=== PATIENT | female | born 1985 | race American Indian/Alaskan Native ===

== ENCOUNTER 2016-12-03 11:33 | Emergency (ER) | payer MEDICAID, OTHER ==
[2016-12-03 13:02] LABS: Basophils % (Auto) 0.5 % (0.0-1.8); Eosinophils % (Auto) 2.2 % (0.0-4.3); Hematocrit 44.3 % (30.3-42.9); Hemoglobin 14.2 gm/dl (10.1-14.3); Mean Corpuscular HGB Conc 32 % (30-34); Mean Corpuscular Hemoglobin 26 pg (28-32); Mean Corpuscular Volume 82 fl (79-97); Platelet Count 324 K/mm3 (140-440); Red Blood Count 5.38 M/mm3 (3.65-5.03); Red Cell Distribution Width 14.5 % (13.2-15.2); White Blood Count 5.6 K/mm3 (4.5-11.0)
[2016-12-03 13:03] LABS: Bilirubin,Urine NEG (Negative); Blood,Urine SM (Negative); Ketones,Urine NEG (Negative); Leukocyte Esterase,Urine TR (Negative); Mucus,Urine FEW /HPF; Nitrite,Urine NEG (Negative); Protein,Urine <15 mg/dL mg/dL (Negative); Urobilinogen,Urine < 2.0 mg/dL (<2.0)
[2016-12-03 13:49] LABS: Alanine Aminotransferase 24 units/L (7-56); Albumin 4.2 g/dL (3.9-5); Albumin/Globulin Ratio 1.3 %; Alkaline Phosphatase 61 units/L (35-129); Anion Gap 18 mmol/L; BUN/Creatinine Ratio 13.75; Blood Urea Nitrogen 11 mg/dL (7-17); Calcium 9.3 mg/dL (8.4-10.2); Carbon Dioxide 26 mmol/L (22-30); Chloride 101.5 mmol/L (98-107); Glucose 91 mg/dL (65-100); Lipase 20 units/L (13-60); Potassium 4.6 mmol/L (3.6-5.0); Sodium 141 mmol/L (137-145); Total Protein 7.4 g/dL (6.3-8.2)
--- NOTE | 2016-12-04 03:13 | Emergency Department Report ---
HPI - General Chief Complaint: Abdominal Pain Time Seen by Provider: 12/04/16 03:10 - HPI HPI: 30-year-old -[place] female, presents to ED with left lower quadrant pain, 7 out of 10, sharp radiating to back. Patient denies any nausea or vomiting. Patient does have history of a blood pressure, morbid obesity. Patient did not try any [id number] medications for her symptoms. Denies any alleviating or exacerbating factors. ED Past Medical Hx - Past Medical History Previous Medical History?: No Hx Hypertension: No - Surgical History Hx Appendectomy: Yes - Social History Smoking Status: Never Smoker - Medications Home Medications: Home Medications Medication Instructions Recorded Confirmed Last Taken Type Ondansetron [Zofran Odt] 4 mg PO Q6H #20 tab.rapdis 01/07/14 Unknown Rx Azithromycin [Zithromax Z-OLLIE] 250 mg PO DAILY #1 tablet 01/11/14 Unknown Rx Methyldopa [Aldomet] 500 mg PO BID #120 tablet 01/11/14 Unknown Rx Nitrofurantoin Kay/M-Cryst 100 mg PO Q12HR #7 capsule 12/04/16 Unknown Rx [Macrobid CAP] traMADol [Ultram] 50 mg PO Q6HR PRN #14 tablet 12/04/16 Unknown Rx ED Review of Systems ROS: Stated complaint: BACK PAIN Other details as noted in HPI Comment: All other systems reviewed and negative Endocrine: no symptoms reported Gastrointestinal: abdominal pain Physical Exam - Physical Exam Vital Signs: Vital Signs 12/03/16 12/03/16 12/03/16 12:32 19:53 23:47 Temperature 98.4 F 98.7 F Pulse Rate 88 89 64 Respiratory 16 18 18 Rate Blood Pressure 145/97 157/108 Blood Pressure 145/97 132/83 [Left] O2 Sat by Pulse 100 100 99 Oximetry 12/04/16 12/04/16 12/04/16 00:55 01:00 01:15 Temperature 98.2 F Pulse Rate 94 H Respiratory 18 Rate Blood Pressure 135/94 129/93 143/101 Blood Pressure 135/94 [Left] O2 Sat by Pulse 99 Oximetry Physical Exam: Gen. alert and oriented 3 in no distress Head atraumatic normocephalic Eyes PERR LA EOMI Chest regular rate and rhythm normal S1-S2 lungs clear bilaterally Abdomen soft nondistended, left lower quadrant tenderness. Back no point tenderness paravertebral tenderness Neuro no focal deficit. Psych normal mood. ED Course Vital Signs 12/03/16 12/03/16 12/03/16 12:32 19:53 23:47 Temperature 98.4 F 98.7 F Pulse Rate 88 89 64 Respiratory 16 18 18 Rate Blood Pressure 145/97 157/108 Blood Pressure 145/97 132/83 [Left] O2 Sat by Pulse 100 100 99 Oximetry 12/04/16 12/04/16 12/04/16 00:55 01:00 01:15 Temperature 98.2 F Pulse Rate 94 H Respiratory 18 Rate Blood Pressure 135/94 129/93 143/101 Blood Pressure 135/94 [Left] O2 Sat by Pulse 99 Oximetry ED Medical Decision Making - Lab Data Result diagrams: 12/03/16 12:53 12/03/16 12:53 Critical care attestation.: If time is entered above; I have spent that time in minutes in the direct care of this critically ill patient, excluding procedure time. ED Disposition Clinical Impression: Abdominal pain, UTI (urinary tract infection) Disposition: DC- TO HOME OR SELFCARE Is pt being admited?: No Does the pt Need Aspirin: No Condition: Stable Instructions: Abdominal Pain (ED), Urinary Tract Infection in Women (ED) Prescriptions: Nitrofurantoin Kay/M-Cryst [Macrobid CAP] 100 mg PO Q12HR #7 capsule traMADol [Ultram] 50 mg PO Q6HR PRN #14 tablet PRN Reason: Pain Referrals: PRIMARY CARE, [Primary Care Provider] - 3-5 Days
--- NOTE | 2016-12-04 05:36 | Cat Scan Report ---
FINAL REPORT PROCEDURE: CT ABDOMEN PELVIS WO CON TECHNIQUE: Computerized axial tomography of the abdomen and pelvis was performed without intravenous contrast. This study is performed without intravascular contrast material and its sensitivity for abdominal and pelvic pathology, including neoplasms, inflammation, abscess, free fluid, thrombosis, arterial dissection and infarction, is reduced compared with a contrast enhanced study. HISTORY: LLQ PAIN COMPARISON: No prior studies are available for comparison. FINDINGS: Visualized lower thorax: No significant abnormality. Liver: Normal size and attenuation. Spleen: Normal size and attenuation. Gallbladder and biliary system: Normal. Pancreas: Normal. Adrenals: Normal. Kidneys: There are stones in the left kidney. There are no ureteral stones. There is no hydronephrosis.. GI tract: There is no bowel obstruction, colitis or enteritis. The appendix is not identified.. Lymph nodes and mesentery: Normal. Vasculature: Normal. Bladder: Normal. Reproductive organs: Uterus and ovaries are unremarkable. Peritoneum: There is no ascites, free air, abscess or adenopathy.. Musculoskeletal structures: No significant abnormality. Other: None. IMPRESSION: There are stones in the left kidney. There are no ureteral stones. There is no hydronephrosis.. There is no bowel obstruction, colitis or enteritis. The appendix is not identified.. Uterus and ovaries are unremarkable. There is no ascites, free air, abscess or adenopathy. .
[2016-12-04 06:26] VITALS: BP 138/102
== END 2016-12-04 06:25 | disposition home or self-care (01) ==
LOC: ED 11:33
DX: N39.0 Urinary tract infection, site not specified (principal); R10.32 Left lower quadrant pain
CPT/HCPCS: 36415; 74176; 80053; 81001; 81025; 83690; 85025